=== PATIENT | male | born 1990 | race Caucasian/White ===

== ENCOUNTER 2021-10-05 10:01 | Emergency (ER) | payer MEDICAID ==
[~2021-10-05] VITALS: Ht 185.4 cm; Wt 79.5 kg
[2021-10-05 10:04] VITALS: BP 149/96
[2021-10-05] MEDS ORDERED: HYDROcodone/acetaminophen 5mg/325mg tablet PO ONE (10:30)
[2021-10-05] MEDS ORDERED: naproxen 500mg tablet PO ONE (10:30)
[2021-10-05] MEDS ORDERED: NAPR-56 PO (10:42)
[2021-10-05] MEDS ORDERED: BICT1TAB3 PO (10:42)
[2021-10-05] MEDS ORDERED: PENI250T2 PO (10:42)
[2021-10-05] MEDS ORDERED: LIDO20SO16 PO (10:42)
== END 2021-10-05 10:52 | disposition home or self-care (01) ==
LOC: ER 10:01
DX: K08.89 Other specified disorders of teeth and supporting structures (principal); Z88.2 Allergy status to sulfonamides; Z79.899 Other long term (current) drug therapy
CPT/HCPCS: 99283

== ENCOUNTER 2022-03-12 14:15 | Emergency (ER) | payer MEDICAID ==
[~2022-03-12] VITALS: Ht 185.4 cm; Wt 86.4 kg
[~2022-03-12 14:15] MED LIST: BICT1TAB3 PO; LIDO20SO16 PO
[2022-03-12 14:31] VITALS: BP 145/96
[2022-03-12] MEDS ORDERED: bacitracin 15gm ointment TP ONE (15:00)
[2022-03-12] MEDS ORDERED: cephalexin 250mg capsule PO ONE (15:00)
[2022-03-12] MEDS ORDERED: CEPH-585 PO (15:02)
== END 2022-03-12 15:14 | disposition home or self-care (01) ==
LOC: ER 14:16
DX: L03.211 Cellulitis of face (principal); Z88.2 Allergy status to sulfonamides; Z79.899 Other long term (current) drug therapy
CPT/HCPCS: 10060; 99283